=== PATIENT | female | born 1995 | race Caucasian/White ===

== ENCOUNTER 2018-03-07 14:07 | Emergency (ER) | payer SELFPAY ==
[~2018-03-07] VITALS: Ht 162.6 cm; Wt 68.0 kg
[2018-03-07 14:11] VITALS: BP 119/72; Ht 162.6 cm; Wt 68.0 kg
== END 2018-03-07 17:29 | disposition home or self-care (01) ==
LOC: ED 14:07
DX: S80.12XA Contusion of left lower leg, initial encounter (principal); S20.212A Contusion of left front wall of thorax, initial encounter; V89.2XXA Person injured in unspecified motor-vehicle accident, traffic, initial encounter; Y93.89 Activity, other specified; Y92.89 Other specified places as the place of occurrence of the external cause; Y99.8 Other external cause status
CPT/HCPCS: J1885

== ENCOUNTER 2018-08-21 20:16 | Emergency (ER) | payer SELFPAY ==
[~2018-08-21] VITALS: Ht 157.5 cm; Wt 68.5 kg
[2018-08-21 20:24] VITALS: Ht 157.5 cm; Wt 68.5 kg
[2018-08-21 21:26] LABS: BASOPHIL % 0.6 % (0-2); PLATELET COUNT 249 x10^3mcL (130-400); RED CELL DISTRIBUTION WIDTH 13.4 % (11.5-14.5)
[2018-08-21 21:32] LABS: CALCIUM 8.4 mg/dL (8.5-10.1); CARBON DIOXIDE 31.1 mmol/L (21-32); CHLORIDE SERUM 104 mmol/L (98-107); CREATININE SERUM 0.6 mg/dL (0.6-1.0); GFR1 > 60 mL/min; GLUCOSE SERUM 105 mg/dL (74-106); POTASSIUM SERUM 3.4 mmol/L (3.5-5.1); SODIUM SERUM 139 mmol/L (136-145)
[2018-08-21 21:36] LABS: ALBUMIN 3.7 g/dL (3.4-5.0); ALKALINE PHOSPHATASE 80 U/L (46-116); ALT/SGPT 17 U/L (14-59); AMYLASE 46 U/L (25-115); AST/SGOT 9 U/L (15-37); BILIRUBIN TOTAL 0.2 mg/dL (0.20-1.00); LIPASE 90 IU/L (73-393); TOTAL PROTEIN, SERUM 7.4 g/dL (6.4-8.2)
[2018-08-21 22:56] VITALS: BP 113/64
== END 2018-08-21 22:56 | disposition home or self-care (01) ==
LOC: ED 20:16
PROVIDERS: Emergency Medicine
DX: K21.9 Gastro-esophageal reflux disease without esophagitis (principal)
CPT/HCPCS: J2405; J3490; J7030

== ENCOUNTER 2018-11-10 14:26 | Emergency (ER) | payer SELFPAY ==
[~2018-11-10] VITALS: Ht 165.1 cm; Wt 68.0 kg
[2018-11-10 14:28] VITALS: Ht 165.1 cm; Wt 68.0 kg
[2018-11-10 17:11] VITALS: BP 150/94
== END 2018-11-10 17:11 | disposition home or self-care (01) ==
LOC: ED 14:26
DX: F43.10 Post-traumatic stress disorder, unspecified (principal); R07.89 Other chest pain; Y04.8XXA Assault by other bodily force, initial encounter